=== PATIENT | male | born 1980 | race Caucasian/White ===

== ENCOUNTER 2018-06-07 05:44 | Day surgery (SDC) | payer OTHER ==
--- NOTE | 2018-06-06 22:15 | PREOPHP ---
DATE OF ADMISSION: 06/07/2018 HISTORY OF PRESENT ILLNESS: The 37-year-old patient is going to be admitted for diagnostic arthrosco py of left shoulder, examination under general anesthesia, SLAP repair, Bankart repair, cuff repair o f left shoulder. A 37-year-old patient has been experiencing shoulder pain for quite a while. Conservative treatment resulted in limited benefit to the patient. The patient has requested surgical intervention. PAST MEDICAL HISTORY: Hypertension. MEDICATIONS: 1. Amlodipine. 2. Tylenol. SOCIAL HISTORY: Used to smoke previously and stopped. No history of substance abuse. No history of alcohol use. REVIEW OF SYSTEMS: No history of jaundice or hepatitis. ALLERGIES: NO HISTORY OF ALLERGY TO MEDICATION. PHYSICAL EXAMINATION: VITAL SIGNS: Height 6 feet 7 inches, weighing 240 pounds. SKIN: Within normal limits. ENT: PERRLA. HEAD AND NECK: Normocephalic. Trachea midline. Bilateral symmetrical carotid pulses. No mass, no bruit, no lymphadenopathy. CARDIOVASCULAR: Normal sinus rhythm. S1, S2 normal. No murmur, no JVD, no peripheral edema. LUNGS: Clear. ABDOMEN: Protuberant. No organomegaly. No mass. Bowel sounds present. GENITOURINARY AND RECTAL: Not done, not pertinent to this admission. MUSCULOSKELETAL: Head and right upper extremity normal. Left upper extremity shows 90% range of mot ion of the shoulder. Marked tenderness in the subacromial space, anterior glenohumeral joint. Posit zuly impingement shows Caswell test. Spine shows mild tenderness over the L4-L5 and L5-S1 facet joint s. Bilateral lower extremities were clear. NEUROLOGIC: Lower extremities. Sensory, motor deep tendon reflexes seems to be intact. MRI of the left shoulder report indicates full-thickness tear of the mid to anterior supraspinatus fo otprint measuring 5 to 7 mm, moderate AC arthrosis, preserved anterior humeral joint, joint capsule t hickening. DIAGNOSIS: Left shoulder rotator cuff, possible SLAP Bankart lesion. Lumbosacral discogenic disease and facet syndrome. Treatment has improved. Treatment plan, alternatives, risks and benefits discussed. The patient understands possible complic ations from surgery such as infection, bleeding, nerve damage, vascular damage, possibility of deep v enous thrombosis, pulmonary embolism, hypersensitivity from medication, and even . The patient understands ideal result may not be obtained depending on actual finding, known or unknown factor or factors. No guarantee is being made. Formal H and P is supposed to be done by PCP. Dictated By: ZACARIAS STUART/ABBEY Conf#: [id number] DID#: [id number]
[~2018-06-07] VITALS: Ht 182.9 cm; Wt 110.8 kg
[2018-06-07] VITALS (17 sets, daily range): BP systolic 99–146; BP diastolic 56–94; PULSE 60–76; RESP 13–18; Ht 182.9 cm; Wt 110.8 kg
[2018-06-07] MEDS ORDERED: ATEN-51 PO (06:58)
[2018-06-07] MEDS ORDERED: EPINEPHrine 0.1 MG/ML SYG ONE ×2 (06:59→09:52)
[2018-06-07] MEDS ORDERED: AMLO-147 PO (06:59)
[2018-06-07] MEDS ORDERED: AMLO5TAB4 PO (06:59)
[2018-06-07] MEDS ORDERED: morphine SULFATE/PF (10 MG/10 ML) INJ ONE (06:59)
[2018-06-07] MEDS ORDERED: PROPOFOL 200 MG INJ ONE (07:00)
[2018-06-07] MEDS ORDERED: EPINEPHrine 1 MG/ML 30 ML INJ INJ SCH (07:30)
--- NOTE | 2018-06-07 07:38 | PREAC ---
Date/Time of Note Date/Time of Note DATE: 06/07/18 TIME: 07:37 Anesthesia Eval and Record Evaluation Time Pre-Procedure Interview DATE: 06/07/18 TIME: 07:20 Age 37 Sex male NPO: 8 hrs Preoperative diagnosis Left Shoulder Pain Planned procedure Left Shoulder Arthroscopy Past Medical History Past Medical History: Includes Cardio: HTN Surgery & Anesthesia Issues No known issue Meds Anticoagulation: No Beta Constance within 24 hr: No Reason Beta Constance not given: Pt. not on B-Constance Reported Medications Amlodipine Besylate* (Norvasc*) 5 Mg Tablet, 5 MG PO QPM, TAB 06/07/18 Amlodipine Besylate* (Amlodipine Besylate*) 10 Mg Tablet, 10 MG PO QAM, #30 TAB 06/07/18 Atenolol* (Atenolol*) 25 Mg Tablet, 25 MG PO DAILY, #30 TAB 06/07/18 Meds reviewed: Yes Allergies Coded Allergies: No Known Allergy (Unverified , 06/07/18) Allergies Reviewed: Yes Labs/Studies Labs Reviewed: Reviewed by anesthesiologist test: N/A Studies: ECG (n/a), CXR (n/a) Pre-procedure Exam Last vitals Vital Signs Date Temp Pulse Resp B/P (MAP) Pulse Ox O2 O2 Flow FiO2 Time Delivery Rate 06/07/18 98.0 65 18 141/86 98 06:31 (104) Airway: Adequate mouth opening, Adequate thyromental dist Mallampati: Mallampati II Teeth: Normal Lung: Normal Heart: Normal ASA Physical Status ASA physical status: 2 Emergency: None Planned Anesthetic General/MAC: ETT Nerve block: Brachial plexus (left) Planned Pain Management Single shot nerve block, Parenteral pain med Pre-operative Attestations Prior to commencing anesthesia and surgery, the patient was re-evaluated, there was verification of: *The patient's identity *The results of appropriate recent lab work and preoperative vital signs *The above evaluation not changing prior to induction *Anesthetic plan, risk benefits, alternative and complications discussed with patient/family; questions answered; patient/family understands, accepts and wishes to proceed. BRETT LORA MD Jun 07, 2018 07:38
[2018-06-07] MEDS ORDERED: PROPOFOL 20 ML ONE (07:43)
[2018-06-07] MEDS ORDERED: ROCURONIUM 50 MG INJ ONE (07:43)
[2018-06-07] MEDS ORDERED: MIDAZOLAM 1 MG/ML 2 ML INJ ONE (07:43)
[2018-06-07] MEDS ORDERED: ROPIVACAINE 0.5 % 30 ML VIAL ONE (07:43)
[2018-06-07] MEDS ORDERED: CEFAZOLIN 1 GM INJ ONE (07:43)
[2018-06-07] MEDS ORDERED: ONDANSETRON 4 MG INJ IV PRN (08:00)
[2018-06-07] MEDS ORDERED: MEPERIDINE 25 MG INJ IV PRN (08:00)
[2018-06-07] MEDS ORDERED: hydrALAzine 20 MG INJ IV PRN (08:00)
[2018-06-07] MEDS ORDERED: DIPHENHYDRAMINE 50 MG INJ IV PRN (08:00)
[2018-06-07] MEDS ORDERED: FENTAnyl 50 MCG/ML VIAL IV PRN ×3 (08:00)
[2018-06-07] MEDS ORDERED: HYDROmorphONE 1 MG/5 ML IV SYRINGE IV PRN ×3 (08:00)
[2018-06-07] MEDS ORDERED: OXYCODONE/ACETAMINOPHEN (5/325) TAB PO PRN ×2 (08:00)
[2018-06-07] MEDS ORDERED: METOCLOPRAMIDE 10 MG INJ IV PRN (08:00)
[2018-06-07] MEDS ORDERED: EPHEDrine SULFATE 50 MG/5 ML SYG IV PRN (08:00)
[2018-06-07] MEDS ORDERED: LABETALOL HCL 20MG INJ IV PRN (08:00)
[2018-06-07] MEDS ORDERED: METOCLOPRAMIDE 10 MG INJ ONE (09:50)
[2018-06-07] MEDS ORDERED: DEXAMETHASONE 4 MG/ML 5 ML INJ ONE (09:50)
[2018-06-07] MEDS ORDERED: KETOROLAC 30 MG INJ ONE (09:50)
[2018-06-07] MEDS ORDERED: ONDANSETRON 4 MG INJ ONE (09:50)
[2018-06-07] MEDS ORDERED: GLYCOPYRROLATE 0.4 MG INJ ONE (09:52)
[2018-06-07] MEDS ORDERED: NEOSTIGMINE 3 MG/3 ML SYRINGE ONE (09:52)
--- NOTE | 2018-06-07 10:12 | PAC ---
Date/Time of Note Date/Time of Note DATE: 06/07/18 TIME: 10:11 Post-Anesthesia Notes Post-Anesthesia Note Last documented vital signs Vital Signs Date Temp Pulse Resp B/P (MAP) Pulse Ox O2 O2 Flow FiO2 Time Delivery Rate 06/07/18 98.0 65 18 141/86 98 face nini 8 Liter 10:11 (104) Activity: WNL Respiratory function: WNL Cardiovascular function: WNL Mental status: Baseline Pain reasonably controlled: Yes Hydration appropriate: Yes Nausea/Vomiting absent: Yes BRETT LORA MD Jun 07, 2018 10:12
--- NOTE | 2018-06-07 10:17 | SIPON ---
Date/Time of Note Date/Time of Note DATE: 06/07/18 TIME: 10:11 Operative Report Preoperative Diagnosis Left shoulder SLAP lesion, Bankart lesion and cuff tear Postoperative Diagnosis The same Operation/Procedure Performed Diagnostic scope ,EUA, debridement, Bankart repair, and acromioplasty and application of shoulder immobilizer Surgeon Zacarias Brito MD assisted living administrator Gracie Anesthesia: general Estimated blood loss: minimal Transfusion Required none Specimen None Grafts/Implants none Complications none ZACARIAS BRITO MD Jun 07, 2018 10:17
--- NOTE | 2018-06-07 11:02 | OPR ---
DATE OF OPERATION: 06/07/2018 PREOPERATIVE DIAGNOSIS: SLAP lesion, Bankart lesion, rotator cuff tear, left shoulder. POSTOPERATIVE DIAGNOSIS: Type 1 SLAP lesion, Bankart lesion with minimal partial thickness tear rota tor cuff, severe impingement, left shoulder. ANESTHESIA: General with block by anesthesiologist. OPERATION PERFORMED: Diagnostic arthroscopy, examination under general anesthesia, debridement, Bank art repair, acromioplasty of left shoulder. BLEEDING: Minimal. COMPLICATIONS: None. OPERATIVE PROCEDURE: The patient was transferred to the operating room and placed on the OR table in supine position. A shoulder block was given. General anesthesia was induced. Two grams of Ancef w as given IV and the patient was put on right decubitus position. Axillary roll applied. Bony areas were padded. Beanbag was deflated. During this procedure, we used Arthrex shoulder curiel total of 10 pounds in subacromial space and a total of 10 pounds on glenohumeral joint. After regular prep an d draping, landmarks were marked. Through a posterior portal glenohumeral joint was entered. The an terolateral portal with 8.25 cannula was established and examination under general anesthesia indicat ed 25% anterior instability. There was fraying in the anterior labrum over the biceps there was like a flap tear in the superior labrum. Therefore, all was debrided. We used a suture lasso FiberStick and PushLock to stabilize the shoulder by tightening the capsule at 11 o'clock position. There was mild synovitis present. This was taken care of by Arthrocare Bovie. Subscapularis was intact. Latanya ps tendon by itself was intact and supraspinatus showed some fraying from inside with no cuff tear ar ticular surface showed fibrillation. This part of procedure was terminated and we entered subacromia l space through the posterior portal, lateral portal was established and 8.25 cannula was inserted. Examination indicated the rotator cuff was severely frayed and inflamed. There was a very tight suba cromial space. There was downsloping of the anterolateral part of the acromion. Therefore, the form al acromioplasty was done. Hemostasis obtained with the help of Arthrocare Bovie. Rotator cuff was visualized from the top except for fraying in the more supraspinatus part of infraspinatus, no obviou s tear was identified. Area was irrigated with copious amounts of saline irrigation. Portal was niko sed with skin regina, 10 mg Duramorph mixed with 10 mL of injectable saline was injected half into t he subacromial space, glenohumeral joint. Sterile dressing was applied. Shoulder immobilizer was pl aced and the patient was transferred to [facility], released from general anesthesia and subsequently blanca t to recovery room in stable condition. Dictated By: ZACARIAS STUART/ABBEY Conf#: [id number] DID#: [id number]
== END 2018-06-07 12:26 | disposition home or self-care (01) ==
LOC: SDS 05:44
PROVIDERS: ATTEND Internal Medicine Endocrinology, Diabetes & Metabolism
DX: S43.432D Superior glenoid labrum lesion of left shoulder, subsequent encounter (principal); M75.102 Unspecified rotator cuff tear or rupture of left shoulder, not specified as traumatic; X58.XXXD Exposure to other specified factors, subsequent encounter; E78.5 Hyperlipidemia, unspecified
CPT/HCPCS: 29807; C1713; J0171; J0690; J1100; J1170; J1885; J2250; J2274; J2405; J2710; J2765; J2795; J3010; Z7512; Z7610